=== PATIENT | female | born 1985 | race Caucasian/White ===

== ENCOUNTER 2017-08-23 12:06 | Emergency (ER) | payer OTHER ==
--- NOTE | 2017-08-23 14:20 | UC ---
Complaint Female HPI - HPI Summary HPI Summary: Pt here requesting and STD testing. She admits to having intercourse with male partner in May when she stopped her OBC for 2 weeks. Her LMP was . She has regular menstrual cycle and feels she should have had this by now. She is also concerned about STD's as she found out her partner has been having intercourse with other partners. No known infection but wants to be safe. Denies fever, chills, CP, SOB, ab/pelvic pain, flank pain, vaginal pain/ irritation/burning/itching or abnormal d/c, dysuria, urinary frequency, hematuria. She's - FT, vaginal deliveries w/o complications. If she is , she plans to keep viable. Smoking but admits she would quit. Has stopped drinking ETOH when she thought she could be . Denies use of illicit drugs and is not taking a vitamin. Reports partner has a restraining order against him but she feels safe at home - no h/o abuse/trauma recently. - History Of Current Complaint Chief Complaint: UCGeneralIllness Stated Complaint: PERSONAL Time Seen by Provider: 08/23/17 13:45 Hx Obtained From: Patient, Family/Debt And Budget Counselor - sister Hx Last Menstrual Period: 07/15/17 Pain Intensity: 0 - Allergies/Home Medications Allergies/Adverse Reactions: Allergies Allergy/AdvReac Type Severity Reaction Status Date / Time albuterol Allergy Difficulty Verified 08/23/17 13:27 Breathing/Wheezing Home Medications: Home Medications Bcp 08/23/17 [History] PMH/Surg Hx/FS Hx/Imm Hx Previously Healthy: Yes - Surgical History Surgical History: None - Family History Known Family History: Positive: None - Social History Lives: With Family - with kids Alcohol Use: Rare - stopped since realizing she may be Substance Use Type: None Smoking Status (MU): Current Every Day Smoker Type: Cigarettes Amount Used/How Often: 1/2 pack daily Review of Systems Constitutional: Negative Skin: Negative Eyes: Negative ENT: Negative Respiratory: Negative Cardiovascular: Negative Gastrointestinal: Negative Genitourinary: Negative Motor: Negative Neurovascular: Negative Musculoskeletal: Negative Neurological: Negative Psychological: Negative Is Patient Immunocompromised?: No All Other Systems Reviewed And Are Negative: Yes Physical Exam Triage Information Reviewed: Yes Appearance: Well-Appearing, No Pain Distress, Well-Nourished Vital Signs: Initial Vital Signs Temp 100.2 F 08/23/17 13:29 Pulse 96 08/23/17 13:29 Resp 18 08/23/17 13:29 BP 103/66 08/23/17 13:29 Pulse Ox 100 08/23/17 13:29 Vital Signs Reviewed: Yes Eye Exam: Normal Eyes: Positive: Conjunctiva Clear ENT Exam: Normal ENT: Positive: Normal ENT inspection, Hearing grossly normal Neck exam: Normal Neck: Positive: Supple Respiratory Exam: Normal Respiratory: Positive: Lungs clear, Normal breath sounds Cardiovascular Exam: Normal Cardiovascular: Positive: RRR, No Murmur Abdominal Exam: Normal Abdomen Description: Positive: Nontender, No Organomegaly, Soft. Negative: CVA Tenderness (R), CVA Tenderness (L), Distended, Guarding Bowel Sounds: Positive: Present Musculoskeletal Exam: Normal Musculoskeletal: Positive: Strength Intact Neurological Exam: Normal Neurological: Positive: Alert Psychological Exam: Normal Skin Exam: Normal Complaint Female Dx - Course Course Of Treatment: Pt here for pregnacy test and STD screening. (see HPI for details). test negative. Pt declines prophylactic tx for STD as again , no known infection from partner and she will wait to see results before testing. Advised to f/u w/ PCP if sx present. Will call w/ results upon return. Encouraged to implement OBC routinely as well as condoms for STD prevention. - Differential Dx/Diagnosis Provider Diagnoses: STD screening. screening Discharge - Discharge Plan Condition: Stable Disposition: HOME Patient Education Materials: Safe Sex (ED) Referrals: Rebecca Araujo PA [Primary Care Provider] - Additional Instructions: Your urine test was negative today. This could be a false positive - if you do not have a period in the next week, follow-up with PCP for a blood test to confirm. Your STD screening tests done here today will return in a few days. You will receive a call with results if positive. If you develop symptoms of STD infection, return to UC, go to PCP, go to [facility] or nearest ED. It is encouraged that you engaged in safe sex practices - see education included.
== END 2017-08-23 15:52 | disposition home or self-care (01) ==
LOC: UCCORT 12:06
DX: Z20.2 Contact with and (suspected) exposure to infections with a predominantly sexual mode of transmission (principal); Z32.02 Encounter for pregnancy test, result negative; Z11.4 Encounter for screening for human immunodeficiency virus [HIV]; F17.210 Nicotine dependence, cigarettes, uncomplicated
CPT/HCPCS: 36415; 80074; 84702; 86592; 86703; 87491; 87591; 99201; G0463